=== PATIENT | male | born 1995 | race Two or more races ===

== ENCOUNTER 2024-09-09 22:07 | Emergency (ER) | payer OTHER ==
[~2024-09-09] VITALS: Ht 167.6 cm; Wt 102.1 kg
[2024-09-09] MEDS ORDERED: TDAP DIPH,PERTUSS,TET VAC/PF 0.5 ML DISP.SYRIN IM ONE (23:39)
[2024-09-09] MEDS: TDAP DIPH,PERTUSS,TET VAC/PF 0.5 ML DISP.SYRIN IM ONE (23:41)
[2024-09-10] MEDS ORDERED: LIDOCAINE HCL 1% 20 ML VIAL ONE (00:02)
[2024-09-10] MEDS ORDERED: HYDROCODONE/APAP 10-325 MG TABLET ONE (00:03)
[2024-09-10] MEDS: HYDROCODONE/APAP 10-325 MG TABLET PO ONE (00:04)
[2024-09-10] MEDS: LIDOCAINE HCL 1% 20 ML VIAL IJ ONE (03:00)
[2024-09-10 03:51] VITALS: BP 127/70; TEMP 98.2; O2SAT 98
== END 2024-09-10 03:30 | disposition home or self-care (01) ==
LOC: ER 22:19
DX: S61.411A Laceration without foreign body of right hand, initial encounter (principal); J45.909 Unspecified asthma, uncomplicated; Z88.6 Allergy status to analgesic agent; Z90.49 Acquired absence of other specified parts of digestive tract; W25.XXXA Contact with sharp glass, initial encounter; Y93.G1 Activity, food preparation and clean up; Y92.89 Other specified places as the place of occurrence of the external cause; Y99.0 Civilian activity done for income or pay
CPT/HCPCS: 12001; 73130; 90471; 90715; 99283; J3490; A4606; A4663